=== PATIENT | female | born 1980 | race Caucasian/White ===

== ENCOUNTER 2020-09-25 10:50 | Emergency (ER) | payer SELFPAY ==
[~2020-09-25] VITALS: Ht 167.6 cm; Wt 90.0 kg
--- NOTE | 2020-09-25 11:43 | ED.ADGEN ---
Past Medical History Past Medical History: Anxiety, Depression Additional Past Medical Histor: IBS Past Surgical History: No Surgical History Smoking Status: Never Smoker Alcohol Use: None General Adult EDM: Chief Complaint: ALLERGIC REACTION HPI: HPI: Patient is a 39 year old female who presents to the ER with concerns of a medication reaction. PT states she has been taking venlafaxine for anxiety over the last 8 months and has had episodes where she wakes up disoriented frequently and feels lightheaded/dizzy for several hours after waking up. Pt denies any dizziness, confusion, headache, numbness, tingling, weakness, headache, vision changes, or difficulty speaking currently. 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 She denies any suicidal or homicidal ideations. Pt states she noticed a rash on her chest and upper back this morning; she denies itching, shortness of breath, or wheezing. She states she has been wearing a new bra since yesterday. She currently denies any pain or complaints. Review of Systems: Review of Systems: Complete ROS is negative unless otherwise stated in the HPI Current Medications: Current Medications Medications (Trade) Dose Ordered Sig/Estela Start Time Stop Time Status Last Admin Dose Admin Cetirizine HCl (ZyrTEC) 10 mg 1X ONCE 09/25/20 11:45 09/25/20 11:46 DC 09/25/20 11:45 10 MG Allergies: Allergies: Allergies Coded Allergies Type Severity Reaction Last Updated Verified diphenhydramine Allergy Unknown Palpitations 09/25/20 Yes escitalopram Allergy Unknown Unknown 09/25/20 Yes latex Allergy Unknown Rash 09/25/20 Yes Physical Exam: PE: Constitutional: Well developed, well nourished, no acute distress, non-toxic appearance, obese. [] HENT: Normocephalic, atraumatic, bilateral external ears normal, nose normal. [] Eyes: PERRLA, EOMI, conjunctiva normal, no discharge. [] Neck: Normal range of motion, no stridor. [] Cardiovascular:Heart rate regular rhythm Lungs & Thorax: respirations even and unlabored, no retractions, no wheezing Skin: Warm, dry; fine, erythremic, maculopapular rash noted in a band like pattern around chest and back in area where bra was in contact with skin- consistent with contact dermatitis. Extremities: No cyanosis, ROM intact, no edema. [] Neurologic: Alert and oriented X 4, normal motor function, normal sensory function, no focal deficits noted. [] Psychologic: Affect normal, judgement normal, mood normal. [] Current Patient Data: Vital Signs: Vital Signs Date Time Temp Pulse Resp B/P (MAP) Pulse Ox O2 Delivery O2 Flow Rate FiO2 09/25/20 12:19 76 135/85 (102) 98 09/25/20 11:12 98.6 16 Room Air 98.6 EKG: EKG: [] Heart Score: Risk Factors: Risk Factors: DM, Current or recent (<one month) smoker, HTN, HLP, family history of CAD, obesity. Risk Scores: Score 0 - 3: 2.5% MACE over next 6 weeks - Discharge Home Score 4 - 6: 20.3% MACE over next 6 weeks - Admit for Clinical Observation Score 7 - 10: 72.7% MACE over next 6 weeks - Early Invasive Strategies Radiology/Procedures: Radiology/Procedures: [] Course & Med Decision Making: Course & Med Decision Making Pertinent Labs and Imaging studies reviewed. (See chart for details) 39-year-old female presented to the emergency room with concerns of medication reaction. Patient is neurologically intact she is alert to person, place, date, president, year, and situation. The rash that the patient has is most likely due to contact dermatitis. The patient was given Zyrtec and she was encouraged to take a daily antihistamine. Provided the patient with the phone number for [facility] and a list of primary care doctors to establish care. I advised the patient that she needs to address her concerns of ongoing medication side effects with a mental health provider or primary care physician. I advised her that medications such as venlafaxine are not managed by the emergency room. Patient was instructed to return to the emergency room if symptoms worsen. Patient verbalized an understanding of home care, medications, follow-up, and return to ED instructions and was in agreement with the plan of care. [] Dragon Disclaimer: Dragon Disclaimer: This electronic medical record was generated, in whole or in part, using a voice recognition dictation system. Departure Departure Impression: Primary Impression: Medication side effect Additional Impression: Contact dermatitis Disposition: 01 DC HOME SELF CARE/HOMELESS Condition: STABLE Referrals: NO PCP (PCP) Patient Instructions: Contact Dermatitis, [id number], Venlafaxine tablets Additional Instructions: I recommend that you take [id number] daily antihistamine such as Zyrtec, Claritin, or Allie for relief of the rash. Stop wearing the bra that triggered your reaction. Follow-up with a primary care provider or [facility] for further treatment of your anxiety and possible medication change. Recommend that you continue to take the Venlafaxine until you have been evaluated by a mental health professional or primary care doctor who tells you to discontinue the medication. You can call [facility] for mental health services at [phone]. I have provided a list of local primary care practices to establish care with. Return to the ER if symptoms worsen. [facility] [address] [place] [address] [facility] [address] [place] [address] [facility] [address] [place] [address] [facility] [address] [place] [address] [facility] [address] [place] [address] [facility] [address] [place] [address] [facility] [address] [place] [address] [facility] [address] [place] [address] [facility] [address] [place] [address] [facility] [address] [place] [address] Attending Signature Attending Signature I have reviewed the PA/SALVAGE MEND WORKER's note and plan of care. I was available for consultation as needed during the patient's visit in the emergency department. I agree with the clinical impression, plan, and disposition. Problem Qualifiers Additional Impression: Contact dermatitis Contact dermatitis type: allergic Contact dermatitis trigger: other trigger Qualified Codes: L23.89 - Allergic contact dermatitis due to other agents RACHEAL OTT APRN Sep 25, 2020 11:43 EVE CHRISTIANSON DO Sep 25, 2020 20:13
[2020-09-25] MEDS ORDERED: CETIRIZINE HCL 10 MG TABLET. PO ONE (11:45)
[2020-09-25 12:19] VITALS: BP 135/85
== END 2020-09-25 12:15 | disposition home or self-care (01) ==
LOC: ER 10:50
DX: L23.5 Allergic contact dermatitis due to other chemical products (principal); T43.215A Adverse effect of selective serotonin and norepinephrine reuptake inhibitors, initial encounter; F41.9 Anxiety disorder, unspecified; R42 Dizziness and giddiness; F32.9 Major depressive disorder, single episode, unspecified; Z88.8 Allergy status to other drugs, medicaments and biological substances; Z91.040 Latex allergy status; Y92.89 Other specified places as the place of occurrence of the external cause
CPT/HCPCS: 99282